=== PATIENT | male | born 1965 | race Caucasian/White ===

== ENCOUNTER 2017-05-10 12:55 | Observation (INO) | payer BC, MEDICARE ==
[2017-05-10] VITALS (8 sets, daily range): BP systolic 103–129; BP diastolic 68–84; PULSE 69–85; RESP 18–24; TEMP 97.7–99.1; O2SAT 99–100
[~2017-05-10] VITALS: Ht 177.8 cm; Wt 111.5 kg
[~2017-05-10 12:55] MED LIST: 1-ME1LIQ PO; ATEN-102 PO; BUME1TAB PO; CARV3.125 PO; CLON.1 PO; CRES10TA PO; DOXA4 PO; HYDR-3533 PO; ISOS30TA3 PO; LANTUS2P SQ; PLAV75TA PO; ST J81CH PO
[2017-05-10] MEDS ORDERED: SODIUM CHLORIDE 0.9% FLUSH 10 ML FLUSH IVF PRN (13:15)
[2017-05-10] MEDS: METOPROLOL TARTRATE 5 MG/5 ML VIAL IV PUSH SCH ×3 (13:15→13:25)
[2017-05-10] MEDS ORDERED: HEPARIN SODIUM - IV 10,000 UNITS/10 ML VIAL IV PUSH STA (13:15)
[2017-05-10] MEDS ORDERED: ASPIRIN 81 MG CHEW TAB PO ONE (13:15)
[2017-05-10] MEDS ORDERED: NITROGLYCERIN-D5W 50 MG/250 ML 250 ML IV PRN (13:15)
[2017-05-10] MEDS ORDERED: HEPARIN-D5W 25,000 U/250 ML 250 ML IV PRN ×2 (13:15→14:15)
--- NOTE | 2017-05-10 13:46 | RADRPT ---
EXAM DATE/TIME: 05/10/2017 13:38 [facility] COMPARISON: CHEST SINGLE AP, March 06, 2016, 19:37. INDICATIONS : Chest pain. Patient complains of difficulty breathing. MEDICAL HISTORY : None. SURGICAL HISTORY : CABG. 2000 Quadruple bypass. H/O 6 stents. ENCOUNTER: Initial ACUITY: 1 week PAIN SCORE: 10/10 LOCATION: Bilateral chest FINDINGS: Previous bypass, moderate cardiomegaly. Mild interstitial edema present. Negative for pneumothorax or pleural effusion. The portion of the bony skeleton visualized is unremarkable. CONCLUSION: Cardiomegaly with mild congestive failure. Dustin Carmona MD FACR on May 10, 2017 at 13:44 Board Certified Radiologist. This report was verified electronically.
[2017-05-10] MEDS ORDERED: METO-309 PO (13:57)
[2017-05-10] MEDS ORDERED: SUCR5CHW PO (13:57)
[2017-05-10] MEDS ORDERED: CO Q100C9 PO (13:57)
[2017-05-10] MEDS ORDERED: ROSU20 PO (13:57)
[2017-05-10] MEDS ORDERED: AMLO10 PO (13:57)
[2017-05-10] MEDS ORDERED: CALC0.25 PO (13:57)
[2017-05-10] MEDS ORDERED: PRAS10TA PO (13:57)
[2017-05-10] MEDS ORDERED: SEVEL800 PO (13:57)
[2017-05-10] MEDS ORDERED: COLA100C5 PO (13:57)
[2017-05-10] MEDS ORDERED: ASPI81TA16 PO (13:57)
[2017-05-10] MEDS ORDERED: ISOS60TA PO (13:57)
[2017-05-10] MEDS ORDERED: BUME2TAB PO (13:57)
[2017-05-10] MEDS ORDERED: LANTUS2P SQ (13:57)
[2017-05-10] MEDS ORDERED: FAMO1TAB37 PO (13:57)
[2017-05-10] MEDS ORDERED: HUMALOG SQ (14:00)
[2017-05-10 14:04] LABS: AUTOMATED NEUTROPHIL # 7.2 TH/MM3 (1.8-7.7); BASOPHIL # 0.1 TH/MM3 (0-0.2); BASOPHIL % 1.1 % (0.0-2.0); EOSINOPHIL # 0.1 TH/MM3 (0-0.4); HEMATOCRIT 31.9 % (39.0-51.0); HEMO FLAGS DIFF FINAL; LYMPH % 14.3 % (9.0-44.0); LYMPHOCYTE # 1.3 TH/MM3 (1.0-4.8); MEAN CELL VOLUME 91.1 FL (80.0-100.0); MEAN CORPUSCULAR HEMOGLOBIN 30.5 PG (27.0-34.0); MEAN CORPUSCULAR HGB CONC 33.5 % (32.0-36.0); MONO % 6.2 % (0.0-8.0); NEUT % 77.4 % (16.0-70.0); PLATELET COUNT 236 TH/MM3 (150-450); RED CELL DISTRIBUTION WIDTH 14.3 % (11.6-17.2); WHITE BLOOD COUNT 9.3 TH/MM3 (4.0-11.0)
[2017-05-10 14:12] LABS: APTT (PATIENT) 26.6 SEC (24.3-30.1); INTERNATIONAL NORMALIZED RATIO 1.3 RATIO; PROTHROMBIN TIME - PATIENT 14.3 SEC (9.8-11.6)
[2017-05-10 14:24] LABS: ANION GAP 19 MEQ/L (5-15); AST (GOT) 12 U/L (15-37); BICARBONATE 23.3 MEQ/L (21.0-32.0); BLOOD UREA NITROGEN 95 MG/DL (7-18); CHLORIDE 90 MEQ/L (98-107); GLOMERULAR FILTRATION RATE 3 ML/MIN (>89); MAGNESIUM 2.8 MG/DL (1.5-2.5); POTASSIUM 3.6 MEQ/L (3.5-5.1); SODIUM (NA) 132 MEQ/L (136-145)
[2017-05-10 14:30] LABS: ALKALINE PHOSPHATASE 105 U/L (45-117); ALT (GPT) 24 U/L (12-78); CREATINE KINASE 184 U/L (39-308); TOTAL BILIRUBIN ADULT 0.4 MG/DL (0.2-1.0)
[2017-05-10 14:42] LABS: CKMB 7.5 NG/ML (0.5-3.6)
--- NOTE | 2017-05-10 15:06 | PD ---
HPI Chief Complaint: Cardiac Complaint Time Seen by Provider: 13:19 Travel History International Travel<30 days: No Contact w/Intl Traveler<30days: No Traveled to known affect area: No History of Present Illness HPI Patient is a 51 year old male with insisted cardiac history who comes in complaining of shortness of breath and headache. He says he does get chest pain on and off, the last time was earlier today. He has history of CABG and 6 stents. He follows with Dr. Amena muniz and was told he had to have his stents replaced. He is scheduled to have the stent replaced on May 17. He says his symptoms have been going on for 2 weeks, but got worse today. He is not currently having chest pain. He denies any leg swelling. He also has a history of kidney failure and does peritoneal dialysis. He denies any fever or chills. He last dialyzed himself this morning. PFSH Past Medical History Hx Anticoagulant Therapy: No Anxiety: No Depression: No Cancer: No Cardiac Catheterization: Yes Cardiovascular Problems: Yes (Bypass 201) High Cholesterol: Yes Chemotherapy: No Chest Pain: Yes Cerebrovascular Accident: No Coronary Artery Disease: Yes Diabetes: Yes Patient Takes Glucophage: No Hypertension: Yes Neurologic: No Respiratory: No Radiation Therapy: No Renal Failure: Yes Tetanus Vaccination: Unknown Influenza Vaccination: No Past Surgical History Cardiac Surgery: Yes (quad by pass, 3 stents ) Coronary Stent: Yes Eye Surgery: Yes Other Surgery: Yes (Pilonidal cyst, carpul tunnle) Social History Alcohol Use: No Tobacco Use: No Substance Use: No Allergies-Medications (Allergen,Severity, Reaction): Coded Allergies: Sulfa (Sulfonamide Antibiotics) (Unverified Allergy, Severe, Anaphylaxis, 02/07/17) shellfish derived (Unverified Allergy, Severe, 02/07/17) Reported Meds & Prescriptions Reported Meds & Active Scripts Active Reported Humalog Inj (Insulin Human Lispro) 1,000 Unit/10 Ml Vial SQ TID NEB Sliding Scale as directed Lantus Inj (Insulin Glargine) 1,000 Unit/10 Ml Vial 30 Units SQ HS Colace (Docusate Sodium) 100 Mg Capsule 200 Mg PO BID Co Q 10 (Coenzyme Q10 (Ubidecarenone)) 100 Mg-5 Unit Cap 100 Mg PO DAILY Aspirin Adult Low Strength (Aspirin) 81 Mg Tabdr 81 Mg PO HS Bumetanide 2 Mg Tab 2 Mg PO BID Renvela (Sevelamer Carbonate) 800 Mg Tab 800 Mg PO TIDAC Velphoro (Sucroferric Oxyhydroxide) 500 Mg Chew 500 Mg PO TIDPC Calcitriol 0.25 Mcg Cap 0.25 Mcg PO DAILY Crestor (Rosuvastatin Calcium) 20 Mg Tab 20 Mg PO DAILY Lopressor (Metoprolol Tartrate) 50 Mg Tab 50 Mg PO BID Pepcid (Famotidine) 20 Mg Tab 20 Mg PO DAILY Isosorbide Mononitrate ER (Isosorbide Mononitrate) 60 Mg Tab 90 Mg PO DAILY Norvasc (Amlodipine Besylate) 10 Mg Tab 5 Mg PO DAILY Review of Systems Except as stated in HPI: all other systems reviewed are Neg General / Constitutional: No: Fever, Chills HENT: Positive: Headaches, No: Lightheadedness Cardiovascular: No: Chest Pain or Discomfort Respiratory: Positive: Shortness of Breath Gastrointestinal: No: Nausea, Vomiting, Abdominal Pain Genitourinary: No: Dysuria Musculoskeletal: No: Myalgias Skin: No Rash, No Change in Pigmentation Neurologic: No: Weakness, Dizziness Physical Exam Narrative GENERAL: Awake and alert, in no acute distress. SKIN: Focused skin assessment warm/dry. HEAD: Atraumatic. Normocephalic. EYES: Pupils equal and round. No scleral icterus. ENT: Mucous membranes pink and moist. NECK: Trachea midline. No JVD. CARDIOVASCULAR: Regular rate and rhythm. No murmur appreciated. RESPIRATORY: No accessory muscle use. Clear to auscultation. Breath sounds equal bilaterally. GASTROINTESTINAL: Abdomen soft, non-tender, nondistended. MUSCULOSKELETAL: No obvious deformities. No clubbing. No cyanosis. No edema. NEUROLOGICAL: Awake and alert. No obvious cranial nerve deficits. Motor grossly within normal limits. Normal speech. PSYCHIATRIC: Appropriate mood and affect; insight and judgment normal. Data Data Last Documented VS Vital Signs Date Time Temp Pulse Resp B/P (MAP) Pulse Ox O2 Delivery O2 Flow Rate FiO2 05/10/17 13:39 98.0 69 23 103/70 (81) 100 Nasal Cannula 2.00 Orders Orders Electrocardiogram (05/10/17 13:03) Ckmb (Isoenzyme) Profile (05/10/17 13:03) Complete Blood Count With Diff (05/10/17 13:03) Comprehensive Metabolic Panel (05/10/17 13:03) Magnesium (Mg) (05/10/17 13:03) Prothrombin Time / Inr (Pt) (05/10/17 13:03) Act Partial Throm Time (Ptt) (05/10/17 13:03) Troponin I (05/10/17 13:03) Ecg Monitoring (05/10/17 13:03) Iv Access Insert/Monitor (05/10/17 13:03) Oximetry (05/10/17 13:03) Aspirin Chew (Aspirin Chew) (05/10/17 13:15) Sodium Chloride 0.9% Flush (Ns Flush) (05/10/17 13:15) Nitroglycerin-D5w 50 Mg/250 Ml (Nitrogly (05/10/17 13:15) Heparin Inj (Heparin Inj) (05/10/17 13:15) Metoprolol Tartrate Inj (Lopressor Inj) (05/10/17 13:15) Heparin Infusion JAVI.Q1H (05/10/17 13:15) Heparin-D5w 25,000 U/250 Ml (Heparin-D5w (05/10/17 13:15) Occult Blood (Hemoccult) Stool (05/10/17 13:15) Heparin Inj (Heparin Inj) (05/10/17 19:15) Heparin Inj (Heparin Inj) (05/10/17 19:15) Chest, Single Ap (05/10/17 13:03) Heparin-D5w 25,000 U/250 Ml (Heparin-D5w (05/10/17 14:15) CKMB (05/10/17 13:30) CKMB% (05/10/17 13:30) Admit Order (Ed Use Only) (05/10/17 ) Place In Observation (05/10/17 ) Vital Signs (Adult) Q4H (05/10/17 15:37) Activity Oob With Assistance (05/10/17 15:37) Jboss Developer / Telemetry .CONTINUOUS (05/10/17 15:37) Intake + Output JAVI.QSHIFT (05/10/17 15:37) Diet Renal (05/10/17 Dinner) Sodium Chloride 0.9% Flush (Ns Flush) (05/10/17 15:45) Sodium Chloride 0.9% Flush (Ns Flush) (05/10/17 21:00) Basic Metabolic Panel (Bmp) (05/11/17 06:00) Complete Blood Count With Diff (05/11/17 06:00) Case Management Consult (05/10/17 15:37) Naloxone Inj (Narcan Inj) (05/10/17 15:45) Labs Laboratory Tests Test 05/10/17 13:30 White Blood Count 9.3 TH/MM3 Red Blood Count 3.50 MIL/MM3 Hemoglobin 10.7 GM/DL Hematocrit 31.9 % Mean Corpuscular Volume 91.1 FL Mean Corpuscular Hemoglobin 30.5 PG Mean Corpuscular Hemoglobin Concent 33.5 % Red Cell Distribution Width 14.3 % Platelet Count 236 TH/MM3 Mean Platelet Volume 9.3 FL Neutrophils (%) (Auto) 77.4 % Lymphocytes (%) (Auto) 14.3 % Monocytes (%) (Auto) 6.2 % Eosinophils (%) (Auto) 1.0 % Basophils (%) (Auto) 1.1 % Neutrophils # (Auto) 7.2 TH/MM3 Lymphocytes # (Auto) 1.3 TH/MM3 Monocytes # (Auto) 0.6 TH/MM3 Eosinophils # (Auto) 0.1 TH/MM3 Basophils # (Auto) 0.1 TH/MM3 CBC Comment DIFF FINAL Differential Comment Prothrombin Time 14.3 SEC Prothromb Time International Ratio 1.3 RATIO Activated Partial Thromboplast Time 26.6 SEC Blood Urea Nitrogen 95 MG/DL Creatinine 15.37 MG/DL Random Glucose 204 MG/DL Total Protein 7.6 GM/DL Albumin 3.6 GM/DL Calcium Level 8.3 MG/DL Magnesium Level 2.8 MG/DL Alkaline Phosphatase 105 U/L Aspartate Amino Transf (AST/SGOT) 12 U/L Alanine Aminotransferase (ALT/SGPT) 24 U/L Total Bilirubin 0.4 MG/DL Sodium Level 132 MEQ/L Potassium Level 3.6 MEQ/L Chloride Level 90 MEQ/L Carbon Dioxide Level 23.3 MEQ/L Anion Gap 19 MEQ/L Estimat Glomerular Filtration Rate 3 ML/MIN Total Creatine Kinase 184 U/L Creatine Kinase MB 7.5 NG/ML Troponin I 0.49 NG/ML B-Type Natriuretic Peptide 1614 PG/ML MDM Medical Decision Making Medical Screen Exam Complete: Yes Emergency Medical Condition: Yes Medical Record Reviewed: Yes Interpretation(s) ECG shows 1 mm elevation in lead 3 and aVR. There is [address] segment in lead 1 and aVL. The nurse from the tie carrier's office since his fracture of an old EKG which looks similar. Differential Diagnosis ACS versus CHF exacerbation versus NSTEMI versus STEMI Narrative Course Patient is a 51-year-old male comes in complaining of shortness of breath. Exam shows no acute abnormalities. IV established, labs sent. Patient given aspirin, given a dose of heparin. Workup was started in triage. Troponin is elevated to 0.49. I spoke with Dr. Piedra, the patient's tie carrier, who knows the patient very well. He says that his troponin has been elevated higher than it is today. He suggested stopping the heparin drip and observing the patient. He says he cannot placed the stent until May 17 as scheduled. Patient is feeling better with oxygen and is resting comfortably. You be placed in observation for further management. Diagnosis Primary Impression: Elevated troponin Admitting Information Admitting Physician Requests: Observation Chandrika Zavala MD May 10, 2017 15:05
[2017-05-10] MEDS ORDERED: NALOXONE HCL 0.4 MG/ML AMP IV PUSH PRN (15:45)
[2017-05-10] MEDS ORDERED: SODIUM CHLORIDE 0.9% FLUSH 10 ML FLUSH IV FLUSH PRN (15:45)
--- NOTE | 2017-05-10 16:16 | HHI.HP ---
[facility]Staff Admission Diagnosis Elevated Troponin Diagnoses: Travel History International Travel<30 Days: No Contact w/Intl Traveler <30 Da: No Traveled to Known Affected Are: No History of Present Illness hx from patient, ER MD communication, and review of med records shortness of breath is the main reason- for past 2- 3 weeks cant even walk from here to there chest pains are present as well , sharp , brisk pain and then stopped bilateral ankle edema, more on the right side with that right wick pain, not calf pain apneic episodes during daytime while falling asleep on effient previously and now on plavix was in [facility] in march 15 2017 mostly not walking severe short of breath in minmal exertion no syncope no blood in urine or stool no fever on peritoneal dialsysi about 3000ml total daily er called his shirt line operator- was told chronic trop elev, stent blocked, cath on 05/17/17 as planned before Review of Systems Except as stated in HPI: all other systems reviewed are Neg Past Family Social History Past Medical History Hypertension Diabetes Hyperlipidemia CADstatus post CABG in 2000, status post coronary artery stenting 2 in 2011, and status post stenting 1 in 2012; total 6 stents now ESRD on hemodialysis -started 02/2016 Suspects Sleep Apnea Past Surgical History Carpal tunnel surgery Pilonidal cyst removal CABG Coronary angiogram and stenting Allergies: Coded Allergies: Sulfa (Sulfonamide Antibiotics) (Unverified Allergy, Severe, Anaphylaxis, 02/07/17) shellfish derived (Unverified Allergy, Severe, 02/07/17) Family History Family history of CAD, diabetes, hypertension in his father who . However none before age of 40. Social History never smoked or drunk heavy no drugs Physical Exam Vital Signs Vital Signs Date Time Temp Pulse Resp B/P (MAP) Pulse Ox O2 Delivery O2 Flow Rate FiO2 05/10/17 13:39 98.0 69 23 103/70 (81) 100 Nasal Cannula 2.00 05/10/17 13:19 98.0 72 23 112/74 (87) 100 Nasal Cannula 2.00 11/15/17 13:19 98.0 72 23 112/74 (87) 100 Nasal Cannula 2.00 05/10/17 13:19 74 26 100 Nasal Cannula 2.00 05/10/17 12:58 97.7 75 24 111/68 (82) 100 Room Air Physical Exam GENERAL: This is a well-nourished, well-developed patient, in moderate distress from dyspnea and somewhat angry SKIN: No rashes, ecchymoses or lesions. Cool and dry. HEAD: Atraumatic. Normocephalic. No temporal or scalp tenderness. EYES: No scleral icterus. No injection or drainage. ENT: Nose without bleeding, purulent drainage or septal hematoma. Airway patent. NECK: Trachea midline. No JVD CARDIOVASCULAR: Regular rate and rhythm without murmurs, gallops, or rubs. RESPIRATORY: bilateral basilar coarse crepitations GASTROINTESTINAL: Abdomen soft, non-tender, nondistended. No guarding. MUSCULOSKELETAL: Extremities without clubbing, cyanosis, or edema. . No calf tenderness. NEUROLOGICAL: Awake and alert. Motor and sensory grossly within normal limits. Normal speech. Laboratory Laboratory Tests Test 05/10/17 13:30 White Blood Count 9.3 Red Blood Count 3.50 Hemoglobin 10.7 Hematocrit 31.9 Mean Corpuscular Volume 91.1 Mean Corpuscular Hemoglobin 30.5 Mean Corpuscular Hemoglobin Concent 33.5 Red Cell Distribution Width 14.3 Platelet Count 236 Mean Platelet Volume 9.3 Neutrophils (%) (Auto) 77.4 Lymphocytes (%) (Auto) 14.3 Monocytes (%) (Auto) 6.2 Eosinophils (%) (Auto) 1.0 Basophils (%) (Auto) 1.1 Neutrophils # (Auto) 7.2 Lymphocytes # (Auto) 1.3 Monocytes # (Auto) 0.6 Eosinophils # (Auto) 0.1 Basophils # (Auto) 0.1 CBC Comment DIFF FINAL Differential Comment Prothrombin Time 14.3 Prothromb Time International Ratio 1.3 Activated Partial Thromboplast Time 26.6 Blood Urea Nitrogen 95 Creatinine 15.37 Random Glucose 204 Total Protein 7.6 Albumin 3.6 Calcium Level 8.3 Magnesium Level 2.8 Alkaline Phosphatase 105 Aspartate Amino Transf (AST/SGOT) 12 Alanine Aminotransferase (ALT/SGPT) 24 Total Bilirubin 0.4 Sodium Level 132 Potassium Level 3.6 Chloride Level 90 Carbon Dioxide Level 23.3 Anion Gap 19 Estimat Glomerular Filtration Rate 3 Total Creatine Kinase 184 Creatine Kinase MB 7.5 Troponin I 0.49 Result Diagram: 05/10/17 1330 05/10/17 1330 Imaging Last 48 hours Impressions Chest X-Ray 05/10/17 1303 Signed Impressions: Service Date/Time: Wednesday, May 10, 2017 13:38 - CONCLUSION: Cardiomegaly with mild congestive failure. Dustin Carmona MD FACR Lung Scan-VQ Nuclear Medicine 05/10/17 0000 Signed Impressions: Service Date/Time: Wednesday, May 10, 2017 18:52 - CONCLUSION: No significant perfusion defects are seen. This is a low probability for pulmonary embolus. Robert Davila MD Caprinjuve VTE Risk Assessment Caprini VTE Risk Assessment: Mod/High Risk (score >= 2) Caprini Risk Assessment Model Point Value = 1 Point Value = 2 Point Value = 3 Point Value = 5 Age 41-60 Minor surgery BMI > 25 kg/m2 Swollen legs Varicose veins or History of unexplained or recurrent spontaneous Oral contraceptives or hormone replacement Sepsis (< 1 month) Serious lung disease, including pneumonia (< 1 month) Abnormal pulmonary function Acute myocardial infarction Congestive heart failure (< 1 month) History of inflammatory bowel disease Medical patient at bed rest Age 61-74 Arthroscopic surgery Major open surgery (> 45 min) Laparoscopic surgery (> 45 min) Malignancy Confined to bed (> 72 hours) Immobilizing plaster cast Central venous access Age >= 75 History of VTE Family history of VTE Factor V Leiden Prothrombin [id number] Lupus anticoagulant Anticardiolipin antibodies Elevated serum homocysteine Heparin-induced thrombocytopenia Other congenital or acquired thrombophilia Stroke (< 1 month) Elective arthroplasty Hip, pelvis, or leg fracture Acute spinal cord injury (< 1 month) Prophylaxis Regimen Total Risk Factor Score Risk Level Prophylaxis Regimen 0-1 Low Early ambulation 2 Moderate Order ONE of the following: *Sequential Compression Device (SCD) *Heparin 5000 units SQ BID 3-4 Higher Order ONE of the following medications: *Heparin 5000 units SQ TID *Enoxaparin/Lovenox 40 mg SQ daily (WT < 150 kg, CrCl > 30 mL/min) *Enoxaparin/Lovenox 30 mg SQ daily (WT < 150 kg, CrCl > 10-29 mL/min) *Enoxaparin/Lovenox 30 mg SQ BID (WT < 150 kg, CrCl > 30 mL/min) AND/OR *Sequential Compression Device (SCD) 5 or more Highest Order ONE of the following medications: *Heparin 5000 units SQ TID (Preferred with Epidurals) *Enoxaparin/Lovenox 40 mg SQ daily (WT < 150 kg, CrCl > 30 mL/min) *Enoxaparin/Lovenox 30 mg SQ daily (WT < 150 kg, CrCl > 10-29 mL/min) *Enoxaparin/Lovenox 30 mg SQ BID (WT < 150 kg, CrCl > 30 mL/min) AND *Sequential Compression Device (SCD) Assessment and Plan Assessment and Plan Impression: severe dyspnea on exertion elevated trop- likely from dyspnea fluid overload peritoneal dialysis patient hypokalemia limited mobility due to acute illness suspects underlying sleep apnea Plan: Bumex 2 mg IV 1 dose now. Potassium 40 daily. By mouth 1 dose. serial cardiac enzymes and EKGs. Patient's case was discussed with her shirt line operator by ER physician. Patient is planned for angiogram on May 17, 2017 for his somewhat malfunctioned cardiac stents. Per report, we'll keep the same date. I do believe the patient's elevated troponin is from dyspnea. Dialysis to be done today by nephrology team. Consult was placed and dialysis nurse had already called back for the details. has the machine. VQ scan stat to rule out PE. Resume rest of his home meds. May need home oxygen evaluation prior to discharge. Patient is thinking that he would really need oxygen at home because his symptoms are quite severe and has been going on for past 3 weeks. He is explained that we would have to investigate for underlying cause of his dyspnea and hypoxia and if needed, we would prescribe oxygen. DVT prophylaxis with heparin. If VQ scan is moderate to high probability, would start heparin drip. Discussed Condition With Patient, ER physician, patient's Venu Chavez MD May 10, 2017 16:16
[2017-05-10] MEDS ORDERED: SEVELAMER CARBONATE 800 MG TAB PO SCH (17:00)
[2017-05-10] MEDS ORDERED: BUMETANIDE INJ 1 MG/4 ML VIAL IV PUSH ONE (17:00)
[2017-05-10] MEDS ORDERED: HEPARIN SODIUM - IV 10,000 UNITS/10 ML VIAL IV FLUSH PRN (17:15)
[2017-05-10] MEDS ORDERED: SODIUM CHLORIDE 0.9% 10 ML VIAL IV FLUSH PRN (17:15)
[2017-05-10] MEDS ORDERED: HEPARIN SODIUM - IV 10,000 UNITS/10 ML VIAL IV PUSH PRN (19:15)
[2017-05-10] MEDS ORDERED: HEPARIN - 10,000 UNITS/ML IV ADDITIVE IV PUSH PRN (19:15)
--- NOTE | 2017-05-10 20:02 | RADRPT ---
EXAM DATE/TIME: 05/10/2017 18:52 [facility] COMPARISON: LUNG VENTILATION & PERFUSION SCAN, March 06, 2016, 22:04. INDICATIONS : Shortness of breath with chest pain for three weeks. DOSE: 8.7 mCi Tc99m MAA IV 0.88 mCi Tc99m DTPA aerosol MEDICAL HISTORY : Renal disease, end stage. Cardiovascular disease Diabetes mellitus type 2. SURGICAL HISTORY : CABG Coronary artery stent. ENCOUNTER: Initial ACUITY: 3 weeks PAIN SCALE: 5/10 LOCATION: Bilateral chest TECHNIQUE: Following five minutes of tidal breathing of DTPA aerosol, planar images of the lungs were performed in eight projections. The patient was then injected with MAA, and eight-view perfusion scan was perf ormed. FINDINGS: There is a homogeneous pattern of aerosol delivery to the periphery of both lungs. No focal ventilat ory defects are seen. The perfusion lung scan demonstrates a homogenous pattern of uptake in both lungs. No segmental or s ubsegmental defects are seen. CONCLUSION: No significant perfusion defects are seen. This is a low probability for pulmonary embolus. Robert Davila MD on May 10, 2017 at 19:59 Board Certified Radiologist. This report was verified electronically.
[2017-05-10 20:23] LABS: BACTERIA, URINE RARE /hpf; BLOOD, URINE MOD (NEG); COMMENT (UR) CULTURE INDICATED; CULTURE IF INDICATED CULTURE INDICATED; GLUCOSE,URINE 300 mg/dL (NEG); KETONE, URINE NEG (NEG); NITRITE,URINE NEG (NEG); PH, URINE 5.5 (5.0-8.5); SQUAMOUS EPITHELIAL CELL URINE <1 /hpf (0-5); URINE COLOR YELLOW (YELLW/STRAW)
[2017-05-10] MEDS ORDERED: RANOLAZINE 500 MG EXTENDED RELEASE TAB PO ONE (20:45)
[2017-05-10] MEDS ORDERED: CLOPIDOGREL 300 MG TAB PO ONE (21:00)
[2017-05-10] MEDS ORDERED: INSULIN DETEMIR 100 UNITS/ML VIAL SQ SCH (21:00)
[2017-05-10] MEDS ORDERED: HEPARIN SODIUM - SQ 10,000 UNITS/ML VIAL SQ ONE (21:00)
[2017-05-10] MEDS: DOCUSATE SODIUM 100 MG CAP PO SCH (21:33)
[2017-05-10] MEDS: METOPROLOL TARTRATE 50 MG TAB PO SCH (21:33)
[2017-05-10] MEDS: SODIUM CHLORIDE 0.9% FLUSH 10 ML FLUSH IV FLUSH SCH (21:35)
[2017-05-11] VITALS (7 sets, daily range): BP systolic 108–130; BP diastolic 64–84; PULSE 69–77; RESP 20; TEMP 98–98.3; O2SAT 98–100
[2017-05-11] MEDS ORDERED: GLUCAGON 1 MG/ML VIAL OTHER PRN (04:30)
[2017-05-11] MEDS ORDERED: DEXTROSE 50% IN WATER 50 ML VIAL(D50) IV PUSH PRN (04:30)
--- NOTE | 2017-05-11 07:09 | MB ---
cc: JOSH ADAM M.D. DATE OF CONSULTATION 05/10/2017 HISTORY OF PRESENT ILLNESS Mr. Avila is a 51-year-old gentleman with history of obesity, hypertension, renal failure on peritoneal dialysis, history of diabetes mellitus, hyperlipidemia, noncompliant at times with medications and diet. He comes in with progressive dyspnea on minimal exertion over the past three weeks. He has atypical sharp discomfort that lasts for seconds at times and not related to exertion and not associated with palpitations or nausea or diaphoresis. Because he has been progressively short of breath even on minimal exertion walking 2 feet, he decided to come to the ER. Cannot lie flat, according to him. He has had lower extremity edema over the past few weeks as well. He has held his dialysis yesterday but he started again today. He felt that the fluids in his belly may be compressing his lungs and causing the shortness of breath. He has seen Dr. Smyth for obstructive sleep apnea but does not have therapy. I am not sure if he had the sleep apnea study done. Denies palpitations, dizziness or syncope. PAST MEDICAL AND SURGICAL HISTORY 1. As mentioned above. 2. History of diabetic retinopathy. 3. Coronary artery disease status post bypass graft surgery and stenting of the vein grafts the diagonals. That is when he presented in the summer with chest discomfort. He came back and had rotational atherectomy and stenting of the left main/proximal circumflex and distal circumflex. He came back in February with recurrent chest discomfort and we found in-stent restenosis in the distal portion of the stent at the proximal part of the circumflex, also in the left main and the distal circumflex. Because of the diffuse nature of the disease and in-stent restenosis, he was evaluated by Cardiovascular Surgery and they felt that he was a high risk for surgical intervention and we were planning to proceed with rotational atherectomy and multiple stenting again using the new Kite Medtronic stent next week. He is known to have four grafts - PIERCE to the LAD, SVG to diagonal which was stented recently, SVG to distal RCA that is occluded and SVG to LCX is also occluded. 4. Hiatal hernia repair in 1965. 5. Left carpal tunnel surgery in 2010. 6. Pilonidal cyst removal in 2015. REVIEW OF SYSTEMS A 12-point system review was unremarkable except what is mentioned in the History of Present Illness. Denies cough or fever at home. SOCIAL HISTORY Never smoked. Denies EtOH abuse or recreational drug use. FAMILY HISTORY Positive for diabetes, coronary artery CHF and hypertension. MEDICATIONS AT HOME Includes the following - 1. Amlodipine 5 mg p.o. daily. 2. Imdur 90 mg p.o. daily. 3. Famotidine 20 mg daily. 4. Metoprolol tartrate 50 mg p.o. b.i.d. 5. Crestor 20 mg daily; was supposed to be on 40 but could not tolerate it because of side effects. 6. Calcitriol 0.25 mcg capsules daily. 7. Plavix 75 grams daily. 8. Ecotrin 81 mEq daily. 9. Bumex 2 mg p.o. b.i.d. 10. Velphoro 500 mg after meals. 11. Renvela 800 mg before meals. 12. 100 mg p.o. daily. 13. Stool softeners p.r.n. 14. Vitamins and supplements. PHYSICAL EXAMINATION GENERAL: A 51-year-old gentleman sitting in a chair in no apparent distress, somewhat anxious, alert and oriented x3, answering questions appropriately. VITAL signs: Blood pressure is 130/80 mmHg, pulse of 73 beats per minute and regular, respirations 40 per minute, afebrile. HEENT: Head is normocephalic. Pupils equal and reactive. Throat is within normal limits. NECK: Supple. No carotid bruit. No thyromegaly or jugular venous distention was seen. LUNG EXAM: A few crepitations at the bases, otherwise is clear to auscultation and percussion. CARDIOVASCULAR EXAM: S1 and S2 are normal with an S4 gallop. No rubs or murmurs and distant heartbeats. ABDOMINAL EXAM: Obese but lax, nontender. Normoactive bowel sounds. No organomegaly or masses felt. EXTREMITIES: No clubbing or cyanosis. There is +1 pitting edema in the lower ankles bilaterally. NEUROLOGIC: Grossly intact with no focal deficits. RECTAL: Rectal exam deferred. IMAGING STUDIES VQ scan with low probability for PE. CHEST X-RAY Reported as with mild congestion. EKG Sinus rhythm and posterolateral ST-T wave changes and old inferior infarction. Has not changed compared to prior tracing. His echocardiogram on February 15, 2017, showed an LVEF of 35-40% with grade 1 diastolic dysfunction, mild to moderate mitral regurgitation and tricuspid regurgitation. ASSESSMENT AND RECOMMENDATIONS 1. Shortness of breath: This can be angina equivalent. We know that he has disease in his left main and circumflex which is more or less diffuse in nature and was felt to be treated medically. However, because of continuous symptoms (also a very anxious person and some of his symptoms are believed to be secondary to anxiety), he was advised to consider revascularization and he was planned for revascularization this coming Monday. A pro-BNP will be obtained. He needs to continue with aggressive dialysis. We will contact Dr. Smyth and see if an O2-PAP would be helpful here. In the meantime Ranexa will be added to his regimen. He is on beta blockers already and on nitrates. LITO inhibitors have been avoided because of his underlying kidney function. I believe fluid management and aggressive dialysis will help. I will put in for another echocardiogram to assess any significant changes. If his LV function is any worse, we might consider low-dose digoxin with very careful watch of his levels and further revascularization versus device therapy will be discussed. TSH and free T4 levels will be checked and we will follow up on his electrolytes and kidney function. He is already on Bumex and this will be continued. We will leave the necessity of home oxygen up to the medical team and pulmonary. 2. Hyperlipidemia: Continue Crestor and continued dietary restrictions. 3. Ischemic cardiomyopathy: Repeat his echocardiogram and further management will be assessed. 4. We will contact Dr. Smyth and see if there is also some degree of chronic pulmonary disease involved. If he improves he can be sent out and brought back as outpatient on Monday. I thank you for the consultation. MD JUDE Wilson/MIRANDA /8:24 PM /6:30 AM
[2017-05-11] MEDS ORDERED: SUCROFERRIC OXYHYDROXIDE 500 MG PO SCH (08:00)
[2017-05-11] MEDS: INSULIN ASPART SUPPLEMENTAL SCALE SQ SCH ×2 (08:00→13:10)
--- NOTE | 2017-05-11 08:16 | PD.CONS ---
HPI Service Nephrology Consult Requested By Reason for Consult ESRD Primary Care Physician Non-Staff History of Present Illness Mr. Walker is a patient known to me. He is on PD for ESRD, thought to be due to diabetic nephropathy. He is s/p CABG and has had several percutaneous interventions. He has been admitted with shortness of breath on minimal exertion that had been getting progressively worse. Presentation is similar to previous admissions. Also has chest pain. Review of Systems Cardiovascular: COMPLAINS OF: Chest pain, Dyspnea on Exertion, PND, Lower Extremity Edema Gastrointestinal: DENIES: Abdominal pain, Black stools, Bloody stools Past Family Social History Allergies: Coded Allergies: Sulfa (Sulfonamide Antibiotics) (Unverified Allergy, Severe, Anaphylaxis, 02/07/17) shellfish derived (Unverified Allergy, Severe, 02/07/17) Past Medical History Hypertension Diabetes, type 2. Hyperlipidemia CADstatus post CABG in 2000, status post coronary artery stenting 2 in 2011, and status post stenting 1 in 2012; and again this year. Has 6 stents. ESRD on PD. Possible [place]ATT Past Surgical History Carpal tunnel surgery Pilonidal cyst removal CABG Coronary angiogram and stenting Reported Medications Humalog Inj (Insulin Human Lispro) 1,000 Unit/10 Ml Vial SQ TID NEB Sliding Scale as directed Lantus Inj (Insulin Glargine) 1,000 Unit/10 Ml Vial 30 Units SQ HS Colace (Docusate Sodium) 100 Mg Capsule 200 Mg PO BID Co Q 10 (Coenzyme Q10 (Ubidecarenone)) 100 Mg-5 Unit Cap 100 Mg PO DAILY Aspirin Adult Low Strength (Aspirin) 81 Mg Tabdr 81 Mg PO HS Bumetanide 2 Mg Tab 2 Mg PO BID Renvela (Sevelamer Carbonate) 800 Mg Tab 800 Mg PO TIDAC Velphoro (Sucroferric Oxyhydroxide) 500 Mg Chew 500 Mg PO TIDPC Calcitriol 0.25 Mcg Cap 0.25 Mcg PO DAILY Crestor (Rosuvastatin Calcium) 20 Mg Tab 20 Mg PO DAILY Lopressor (Metoprolol Tartrate) 50 Mg Tab 50 Mg PO BID Pepcid (Famotidine) 20 Mg Tab 20 Mg PO DAILY Isosorbide Mononitrate ER (Isosorbide Mononitrate) 60 Mg Tab 90 Mg PO DAILY Norvasc (Amlodipine Besylate) 10 Mg Tab 5 Mg PO DAILY Active Ordered Medications Current Medications Medications (Trade) Dose Ordered Sig/Lyle Route Start Time Stop Time Status Last Admin (NS Flush) 2 ml UNSCH PRN IV FLUSH 05/10/17 15:45 (NS Flush) 2 ml BID IV FLUSH 05/10/17 21:00 05/10/17 21:35 (Narcan Inj) 0.4 mg UNSCH PRN IV PUSH 05/10/17 15:45 (Norvasc) 5 mg DAILY PO 05/11/17 09:00 (Ecotrin Ec) 81 mg HS PO 05/11/17 21:00 (Rocaltrol) 0.25 mcg DAILY PO 05/11/17 09:00 (Colace) 200 mg BID PO 05/10/17 21:00 05/10/17 21:33 (Pepcid) 20 mg DAILY PO 05/11/17 09:00 (Levemir Inj) 30 units HS SQ 05/10/17 21:00 05/10/17 21:34 (Imdur) 90 mg DAILY PO 05/11/17 09:00 (Lopressor) 50 mg BID PO 05/10/17 21:00 05/10/17 21:33 (Renvela) 800 mg TIDAC PO 05/10/17 17:00 (Lipitor) 40 mg DAILY PO 05/11/17 09:00 Patient Own Medication PT OWN MED: (Sucroferric Oxyhydroxid... TIDAC PO 05/11/17 08:00 Future Hold (NS Inj) 10 ml WITH DIALYSIS PRN IV FLUSH 05/10/17 17:15 (Heparin Inj) Add 1000 units of Hepa... WITH DIALYSIS PRN IV FLUSH 05/10/17 17:15 (Ranexa) 500 mg BID PO 05/11/17 09:00 (Heparin Inj) 5,000 units Q12HR SQ 05/11/17 09:00 (Plavix) 75 mg DAILY PO 05/11/17 09:00 (D50w (Vial) Inj) 50 ml UNSCH PRN IV PUSH 05/11/17 04:30 (Glucagon Inj) 1 mg UNSCH PRN OTHER 05/11/17 04:30 (NovoLOG SUPPLEMENTAL SCALE) 1 ACHS SLIDING SCALE SQ 05/11/17 08:00 (Bumetanide) 2 mg BID PO 05/11/17 09:00 Family History Father had diabetes, CAD, hypertension. Social History , never smoked, lives in [facility]. Physical Exam Vital Signs Vital Signs Date Time Temp Pulse Resp B/P (MAP) Pulse Ox O2 Delivery O2 Flow Rate FiO2 05/11/17 07:42 98.0 72 20 130/84 (99) 100 05/11/17 04:30 69 05/11/17 03:42 98.2 72 20 108/67 (81) 98 05/11/17 00:10 76 05/10/17 23:36 99.1 80 18 114/69 (84) 99 05/10/17 22:11 85 05/10/17 19:54 98.0 73 20 129/80 (96) 100 05/10/17 17:24 70 20 109/73 (85) 100 Nasal Cannula 05/10/17 17:17 97.8 77 18 119/84 (96) 100 05/10/17 13:39 98.0 69 23 103/70 (81) 100 Nasal Cannula 2.00 05/10/17 13:19 98.0 72 23 112/74 (87) 100 Nasal Cannula 2.00 05/10/17 13:19 98.0 72 23 112/74 (87) 100 Nasal Cannula 2.00 05/10/17 13:19 74 26 100 Nasal Cannula 2.00 05/10/17 12:58 97.7 75 24 111/68 (82) 100 Room Air Physical Exam GENERAL: sitting on a chair. Comfortable at rest. SKIN: Warm and dry. HEAD: Normocephalic. EYES: No scleral icterus. No injection or drainage. NECK: Supple, trachea midline. No JVD or lymphadenopathy. CARDIOVASCULAR: Regular rate and rhythm without murmurs, gallops, or rubs. 1+ edema RESPIRATORY: bibasilar rales. . GASTROINTESTINAL: Abdomen soft, non-tender, nondistended. PD catheter is in place. MUSCULOSKELETAL: No cyanosis, or edema. BACK: Nontender without obvious deformity. No CVA tenderness. Laboratory Laboratory Tests Test 05/10/17 13:30 05/10/17 19:48 05/10/17 20:27 White Blood Count 9.3 Red Blood Count 3.50 Hemoglobin 10.7 Hematocrit 31.9 Mean Corpuscular Volume 91.1 Mean Corpuscular Hemoglobin 30.5 Mean Corpuscular Hemoglobin Concent 33.5 Red Cell Distribution Width 14.3 Platelet Count 236 Mean Platelet Volume 9.3 Neutrophils (%) (Auto) 77.4 Lymphocytes (%) (Auto) 14.3 Monocytes (%) (Auto) 6.2 Eosinophils (%) (Auto) 1.0 Basophils (%) (Auto) 1.1 Neutrophils # (Auto) 7.2 Lymphocytes # (Auto) 1.3 Monocytes # (Auto) 0.6 Eosinophils # (Auto) 0.1 Basophils # (Auto) 0.1 CBC Comment DIFF FINAL Differential Comment Prothrombin Time 14.3 Prothromb Time International Ratio 1.3 Activated Partial Thromboplast Time 26.6 Blood Urea Nitrogen 95 Creatinine 15.37 Random Glucose 204 Total Protein 7.6 Albumin 3.6 Calcium Level 8.3 Magnesium Level 2.8 Alkaline Phosphatase 105 Aspartate Amino Transf (AST/SGOT) 12 Alanine Aminotransferase (ALT/SGPT) 24 Total Bilirubin 0.4 Sodium Level 132 Potassium Level 3.6 Chloride Level 90 Carbon Dioxide Level 23.3 Anion Gap 19 Estimat Glomerular Filtration Rate 3 Total Creatine Kinase 184 150 Creatine Kinase MB 7.5 Troponin I 0.49 0.48 B-Type Natriuretic Peptide 1614 Urine Color YELLOW Urine Turbidity HAZY Urine pH 5.5 Urine Specific [place] 1.015 Urine Protein 100 Urine Glucose (UA) 300 Urine Ketones NEG Urine Occult Blood MOD Urine Nitrite NEG Urine Bilirubin NEG Urine Urobilinogen LESS THAN 2.0 Urine Leukocyte Esterase LARGE Urine RBC 31 Urine WBC 25 Urine Squamous Epithelial Cells <1 Urine Amorphous Sediment RARE Urine Bacteria RARE Microscopic Urinalysis Comment CULTURE INDICATED Date/Time Source Procedure Growth Status 05/10/17 19:48 Urine Clean Catch Urine Culture Pending Received Result Diagram: 05/10/17 1330 05/10/17 1330 Assessment and Plan Problem List: (1) ESRD (end stage renal disease) ICD Codes: N18.6 - End stage renal disease Status: Acute Plan: We will continue PD. He uses 2.5 % dextrose PD solution nightly, sometimes 4.25 %. Last fill is icodextrin. We had discussed HD for more efficient fluid removal, but he is reluctant, and afraid that he will not survive. Continue to monitor fluid and electrolyte status. Avoid Gadolinium. Use of LITO inhibitor/ARB is not contraindicated in this patient. (2) Dyspnea ICD Codes: R06.00 - Dyspnea, unspecified Status: Resolved Plan: Anginal equivalent. Cardiology on the case. Monitor. Optimize fluid management. (3) DM (diabetes mellitus screen) ICD Codes: Z13.1 - Encounter for screening for diabetes mellitus Status: Acute Plan: Historically has had poorly controlled diabetes. Continue insulin coverage. (4) Metabolic bone disease ICD Codes: E88.9 - Metabolic disorder, unspecified; M90.80 - Osteopathy in diseases classified elsewhere, unspecified site Status: Acute Plan: Continue binders. Monitor phosphorus. On Calcitriol as well. (5) HTN (hypertension) ICD Codes: I10 - Essential (primary) hypertension Status: Acute Plan: Acceptable BP. As mentioned above, if LITO inhibitor or ARB is indicated, can be used. (6) Anemia of renal disease ICD Codes: D63.1 - Anemia in chronic kidney disease Plan: Epogen. Monitor Hemoglobin. Assessment and Plan Thanks for the consult. Byron Painting MD May 11, 2017 08:15
[2017-05-11] MEDS ORDERED: RANOLAZINE 500 MG EXTENDED RELEASE TAB PO SCH (09:00)
[2017-05-11] MEDS ORDERED: FAMOTIDINE 20 MG TAB PO SCH (09:00)
[2017-05-11] MEDS ORDERED: CLOPIDOGREL 75 MG TAB PO SCH (09:00)
[2017-05-11] MEDS ORDERED: ISOSORBIDE MONONITRATE 30 MG TAB PO SCH (09:00)
[2017-05-11] MEDS ORDERED: amLODIPine BESYLATE 5 MG TAB PO SCH (09:00)
[2017-05-11] MEDS ORDERED: CALCITRIOL 0.25 MCG CAP PO SCH (09:00)
[2017-05-11] MEDS ORDERED: ATORVASTATIN 40 MG TAB PO SCH (09:00)
[2017-05-11] MEDS ORDERED: BUMETANIDE 1 MG TAB PO SCH (09:00)
[2017-05-11] MEDS: SODIUM CHLORIDE 0.9% FLUSH 10 ML FLUSH IV FLUSH SCH (09:00)
[2017-05-11] MEDS ORDERED: HEPARIN SODIUM - SQ 10,000 UNITS/ML VIAL SQ SCH (09:00)
[2017-05-11] MEDS: DOCUSATE SODIUM 100 MG CAP PO SCH (10:10)
[2017-05-11] MEDS: METOPROLOL TARTRATE 50 MG TAB PO SCH (10:10)
[2017-05-11] MEDS ORDERED: SEVELAMER CARBONATE 800 MG TAB PO SCH (12:00)
--- NOTE | 2017-05-11 13:00 | HHI.PR ---
Subjective Remarks Follow-up fluid overload. States he feels much better. Denies on oxygen. Denies chest pain. Awaiting labs and echocardiogram. Discussed with RN Objective Vitals Vital Signs Date Time Temp Pulse Resp B/P (MAP) Pulse Ox O2 Delivery O2 Flow Rate FiO2 05/11/17 11:30 98.3 75 20 109/64 (79) 99 05/11/17 07:42 98.0 72 20 130/84 (99) 100 05/11/17 04:30 69 05/11/17 03:42 98.2 72 20 108/67 (81) 98 05/11/17 00:10 76 05/10/17 23:36 99.1 80 18 114/69 (84) 99 05/10/17 22:11 85 05/10/17 19:54 98.0 73 20 129/80 (96) 100 05/10/17 17:24 70 20 109/73 (85) 100 Nasal Cannula 05/10/17 17:17 97.8 77 18 119/84 (96) 100 05/10/17 13:39 98.0 69 23 103/70 (81) 100 Nasal Cannula 2.00 05/10/17 13:19 98.0 72 23 112/74 (87) 100 Nasal Cannula 2.00 05/10/17 13:19 98.0 72 23 112/74 (87) 100 Nasal Cannula 2.00 05/10/17 13:19 74 26 100 Nasal Cannula 2.00 05/10/17 12:58 97.7 75 24 111/68 (82) 100 Room Air I/O 05/10/17 05/10/17 05/10/17 05/11/17 05/11/17 05/11/17 07:00 15:00 23:00 07:00 15:00 23:00 Output Total 100 ml 100 ml 653 ml Balance -100 ml -100 ml -653 ml Output Urine Total 100 ml 100 ml Peritoneal Fluid 653 ml Result Diagram: 05/10/17 1330 05/10/17 1330 Imaging Last Impressions Chest X-Ray 05/10/17 1303 Signed Impressions: Service Date/Time: Wednesday, May 10, 2017 13:38 - CONCLUSION: Cardiomegaly with mild congestive failure. Dustin Carmona MD FACR Lung Scan-VQ Nuclear Medicine 05/10/17 0000 Signed Impressions: Service Date/Time: Wednesday, May 10, 2017 18:52 - CONCLUSION: No significant perfusion defects are seen. This is a low probability for pulmonary embolus. Robert Davila MD Objective Remarks GENERAL: This is a well-nourished, well-developed patient, in no distress SKIN: No rashes, ecchymoses or lesions. Cool and dry. CARDIOVASCULAR: Regular rate and rhythm without murmurs, gallops, or rubs. RESPIRATORY: Decreased breath GASTROINTESTINAL: Abdomen soft, non-tender, nondistended. No guarding. MUSCULOSKELETAL: Extremities without clubbing, cyanosis, or edema. . No calf tenderness. NEUROLOGICAL: Awake and alert. Motor and sensory grossly within normal limits. Normal speech. Procedures None A/P Problem List: (1) Dyspnea ICD Code: R06.00 - Dyspnea, unspecified Status: Resolved Assessment and Plan Dyspnea on exertion which could be secondary to fluid overload and anginal equivalent. He is better on oxygen. Continue diuresis with Bumex. He is scheduled for revascularization with cardiology. Home oxygen will be ordered pending walk test Troponin elevation with history of coronary artery disease status post bypass and stent. Denies chest pain. Continue aspirin, Plavix, Lipitor, Imdur and Lopressor. Ranexa has been added. Consider adding LITO inhibitor if BP stable. For left heart catheterization 05/17 End-stage renal disease on peritoneal dialysis per nephrology Abnormal urinalysis. Follow-up urine culture Chronic medical conditions of hypertension, diabetes mellitus, hyperlipidemia and sleep apnea DVT Prophylaxis with subcutaneous heparin Discharge Planning Discharge patient to home Condition on discharge: Improved Regular Diet as tolerated Ad Hillary activity no driving Rx written: Oxygen, Ranexa and Plavix Follow-up with primary care physician and cardiology Valerio Berg MD May 11, 2017 13:00
--- NOTE | 2017-05-11 15:04 | PD.AMA ---
Against Medical Advice Note Discharge Disposition: Against Medical Advice Pt Condition on Discharge: Stable Recommended Treatment Course Keep appointment for cardiac catheterization on 05/17. Take medications as prescribed. AMA Statement RN has informed me that the Patient Chacorta Walker has decided to leave the hospital against medical advice. He is AAOx4. This patient has the capacity to refuse care and understands the risks of leaving, including permanent disability and/or , and has had an opportunity to ask questions about his condition. The patient has been informed that he may return for care at any time , and follow up has been arranged/advised. Mary Ann Cruz PA-C May 11, 2017 3:04 pm
--- NOTE | 2017-05-11 16:19 | EKG ---
Date Performed: 05/10/2017 Time Performed: 21:06:43 PTAGE: 51 years EKG: Sinus rhythm INFERIOR MYOCARDIAL INFARCTION ST DEVIATION AND MODERATE T-WAVE ABNORMALITY, CONSIDER LATERAL ISCHEM IA ABNORMAL ECG PREVIOUS TRACING : 05/10/2017 13.12 Compared to prior tracing no significant change DOCTOR: Kassandra Calvo Interpretating Date/Time 05/11/2017 16:18:29
--- NOTE | 2017-05-11 17:43 | EKG ---
Date Performed: 05/10/2017 Time Performed: 13:12:22 PTAGE: 51 years EKG: Sinus rhythm INFERIOR MYOCARDIAL INFARCTION ST DEVIATION AND MODERATE T-WAVE ABNORMALITY, CONSIDER LATERAL ISCHEM IA ABNORMAL ECG PREVIOUS TRACING 03/11/16 Since the prior tracing, the patient had increasing ST elevation as w ell as increasing reciprocal change in the lateral leads. Study suggests worsening ischemia associate d with the inferior wall ST segment elevation infarction. Clinical correlation will be extremely impo rtant. DOCTOR: Kassandra Calvo Interpretating Date/Time 05/11/2017 17:41:25
[2017-05-11] MEDS ORDERED: ASPIRIN EC 81 MG TABEC PO SCH (21:00)
== END 2017-05-11 16:28 | disposition home or self-care (01) ==
LOC: NEPC 12:55 → NEDA 15:39 → NEPFCDU 17:16
PROVIDERS: ADMIT Internal Medicine; ATTEND Internal Medicine
DX: R06.00 Dyspnea, unspecified (principal); E87.70 Fluid overload, unspecified; I13.2 Hypertensive heart and chronic kidney disease with heart failure and with stage 5 chronic kidney disease, or end stage renal disease; E11.22 Type 2 diabetes mellitus with diabetic chronic kidney disease; I50.9 Heart failure, unspecified; N18.6 End stage renal disease; E87.6 Hypokalemia; R51 Headache; R78.89 Finding of other specified substances, not normally found in blood; R60.0 Localized edema; M79.661 Pain in right lower leg; E78.5 Hyperlipidemia, unspecified; I25.118 Atherosclerotic heart disease of native coronary artery with other forms of angina pectoris; E78.00 Pure hypercholesterolemia, unspecified; R94.31 Abnormal electrocardiogram [ECG] [EKG]; G47.33 Obstructive sleep apnea (adult) (pediatric); E11.319 Type 2 diabetes mellitus with unspecified diabetic retinopathy without macular edema; I25.5 Ischemic cardiomyopathy; E88.89 Other specified metabolic disorders; D63.1 Anemia in chronic kidney disease; E66.9 Obesity, unspecified; Z68.35 Body mass index [BMI] 35.0-35.9, adult; Z91.19 Patient's noncompliance with other medical treatment and regimen; Z79.899 Other long term (current) drug therapy; Z99.2 Dependence on renal dialysis; Z79.82 Long term (current) use of aspirin; Z95.5 Presence of coronary angioplasty implant and graft; Z95.1 Presence of aortocoronary bypass graft
CPT/HCPCS: 71010; 78582; 80053; 81001; 82272; 82550; 82552; 82948; 83735; 83880; 84484; 85025; 85610; 85730; 87086; 90935; 93005; 94620; 96365; 96372; 96375; 99285; A9540; A9567; G0378; J1644; J1815